=== PATIENT | female | born 1950 | race Caucasian/White ===

== ENCOUNTER 2017-06-22 10:43 | Day surgery (SDC) | payer OTHER | END 2017-06-22 16:25 | disposition home or self-care (01) | LOC: AMB-ENDOS 10:43 | DX: K62.4 Stenosis of anus and rectum (principal); K57.30 Diverticulosis of large intestine without perforation or abscess without bleeding; K64.8 Other hemorrhoids ==

== ENCOUNTER → 2019-07-04 | Day surgery (SDC) | payer OTHER | END | disposition home or self-care (01) | LOC: ADM 06-30 13:45 → CIR.AMB 11:21 | DX: D12.3 Benign neoplasm of transverse colon (principal); K64.8 Other hemorrhoids ==